=== PATIENT | female | born 1950 | race Caucasian/White ===

== ENCOUNTER 2023-09-04 18:57 | Inpatient (IN) | payer OTHER, BC ==
[2023-09-04 19:13] VITALS: BMI 19.5
[2023-09-04] MEDS: SODIUM CHLORIDE 0.9% 500 ML INFUS.BAG IV ONE (20:13)
[2023-09-04 20:31] LABS: BASO % 0.9 % (0-2.0); EOS % 0.2 % (0-4.5); HEMATOCRIT 24.5 % (32.4-45.2); HEMOGLOBIN 7.7 GM/dL (10.7-15.3); LYMPH % 7.7 % (8-40); MCH 23.6 pg (25.7-33.7); MCHC 31.4 g/dl (32.0-36.0); MEAN CELL VOLUME 75.2 fl (80-96); MEAN PLT VOLUME 7.9 fl (7.5-11.1); MONO % 7.2 % (3.8-10.2); PLATELET COUNT 389 10^3/uL (134-434); RBC 3.26 M/mm3 (3.60-5.2); RDW 18.6 % (11.6-15.6); WHITE BLOOD COUNT 7.8 K/mm3 (4.0-10.0)
[2023-09-04 20:40] LABS: INR 1.07 (0.83-1.09); PROTHROMBIN TIME (PATIENT) 12.1 SEC (9.7-13.0)
[2023-09-04 20:42] LABS: ACTIVATED PTT 28.9 SECONDS (25.2-36.5)
[2023-09-04 20:52] LABS: POTASSIUM 3.5 mmol/L (3.5-5.1)
[2023-09-04 20:54] LABS: ALBUMIN 3.7 g/dl (3.4-5.0); CALCIUM 9.6 mg/dL (8.5-10.1)
[2023-09-04 20:55] LABS: BLOOD UREA NITROGEN 10.5 mg/dL (7-18); MAGNESIUM 1.4 mg/dL (1.8-2.4)
[2023-09-04] MEDS ORDERED: MAGNESIUM 1GM/D5W - 1 GM/100 ML IVPB IVPB ONE (20:58)
[2023-09-04 20:59] LABS: BILIRUBIN,TOTAL 0.8 mg/dL (0.2-1); TOT PROT 8.5 g/dl (6.4-8.2)
[2023-09-04] MEDS: MAGNESIUM SULF 50% (8.12 MEQ/2 ML-1 GM VIAL) IVPB ONE (21:06)
[2023-09-05] MEDS: SODIUM CHLORIDE 1,000 ML IV SCH (05:48)
[2023-09-05] MEDS: VENLAFAXINE HCL 75 MG TABLET PO SCH (08:04)
[2023-09-05 08:35] LABS: HEMATOCRIT 20.8 % (32.4-45.2); MCHC 32.1 g/dl (32.0-36.0); MEAN CELL VOLUME 74.8 fl (80-96); MEAN PLT VOLUME 7.8 fl (7.5-11.1); PLATELET COUNT 319 10^3/uL (134-434); RBC 2.78 M/mm3 (3.60-5.2); RDW 18.2 % (11.6-15.6); WHITE BLOOD COUNT 6.9 K/mm3 (4.0-10.0)
[2023-09-05 08:55] LABS: POTASSIUM 3.3 mmol/L (3.5-5.1)
[2023-09-05 09:13] LABS: MAGNESIUM 1.7 mg/dL (1.8-2.4)
[2023-09-05 09:15] LABS: HEMOGLOBIN 6.7 GM/dL (10.7-15.3)
[2023-09-05 09:16] LABS: PHOSPHOROUS 3.3 mg/dL (2.5-4.9)
[2023-09-05 09:17] LABS: CREATININE 0.7 mg/dL (0.55-1.3)
[2023-09-05 09:18] LABS: BILIRUBIN,TOTAL 0.8 mg/dL (0.2-1); TOT PROT 7.1 g/dl (6.4-8.2)
[2023-09-05] MEDS: PANTOPRAZOLE SODIUM 40 MG VIAL IVPUSH SCH (09:21)
[2023-09-05] MEDS: NICOTINE 14 MG/24 HOURS TOPICAL PATCH TD SCH (09:21)
[2023-09-05] MEDS: MAGNESIUM SULF 50% (8.12 MEQ/2 ML-1 GM VIAL) IVPB ONE (17:49)
[2023-09-05] MEDS: POTASSIUM CHLORIDE ORAL LIQUID 20 MEQ/15 ML PO ONE (17:49)
[2023-09-05] MEDS: ATORVASTATIN CA 40 MG TABLET (FP) PO SCH (21:35)
[2023-09-06 07:47] LABS: PROTHROMBIN TIME (PATIENT) 11.5 SEC (9.7-13.0)
[2023-09-06 07:52] LABS: BASO % 1.1 % (0-2.0); EOS % 2.5 % (0-4.5); HEMATOCRIT 25.2 % (32.4-45.2); HEMOGLOBIN 8.1 GM/dL (10.7-15.3); LYMPH % 19.6 % (8-40); MCH 24.9 pg (25.7-33.7); MCHC 32.2 g/dl (32.0-36.0); MEAN CELL VOLUME 77.6 fl (80-96); MEAN PLT VOLUME 7.7 fl (7.5-11.1); MONO % 8.5 % (3.8-10.2); NEUT % 68.3 % (42.8-82.8); PLATELET COUNT 300 10^3/uL (134-434); RBC 3.24 M/mm3 (3.60-5.2); RDW 19.4 % (11.6-15.6); WHITE BLOOD COUNT 7.8 K/mm3 (4.0-10.0)
[2023-09-06 08:00] LABS: POTASSIUM 3.7 mmol/L (3.5-5.1)
[2023-09-06 08:07] LABS: ALBUMIN 2.9 g/dl (3.4-5.0); CALCIUM 8.7 mg/dL (8.5-10.1)
[2023-09-06 08:08] LABS: BLOOD UREA NITROGEN 4.7 mg/dL (7-18); CREATININE 0.7 mg/dL (0.55-1.3); MAGNESIUM 2.2 mg/dL (1.8-2.4)
[2023-09-06 08:10] LABS: BILIRUBIN,TOTAL 1.2 mg/dL (0.2-1); TOT PROT 6.6 g/dl (6.4-8.2)
[2023-09-06 08:50] LABS: BILIRUBIN,DIRECT 0.4 mg/dL (0.0-0.2)
[2023-09-06] MEDS: IRON SUCROSE INJECTION 200 MG in SODIUM CHLORIDE 100 ML IVPB ONE (11:38)
[2023-09-06] MEDS: BISACODYL 5 MG TABLET.DR (FP) PO ONE (18:02)
[2023-09-06] MEDS: PEG 3350/NA SULF BICARB CL/KCL 4000 ML SOLN.RECON PO ONE (18:02)
[2023-09-07 08:03] LABS: POTASSIUM 3.3 mmol/L (3.5-5.1)
[2023-09-07 08:07] LABS: CALCIUM 9.3 mg/dL (8.5-10.1)
[2023-09-07 08:08] LABS: ALBUMIN 3.4 g/dl (3.4-5.0); BLOOD UREA NITROGEN 3.7 mg/dL (7-18); MAGNESIUM 1.9 mg/dL (1.8-2.4)
[2023-09-07 08:11] LABS: CREATININE 0.8 mg/dL (0.55-1.3)
[2023-09-07 08:12] LABS: BILIRUBIN,TOTAL 1.4 mg/dL (0.2-1); PHOSPHOROUS 3.9 mg/dL (2.5-4.9); TOT PROT 7.6 g/dl (6.4-8.2)
[2023-09-07 08:31] LABS: HEMATOCRIT 29.4 % (32.4-45.2); HEMOGLOBIN 9.5 GM/dL (10.7-15.3); MCHC 32.4 g/dl (32.0-36.0); MEAN CELL VOLUME 77.3 fl (80-96); MEAN PLT VOLUME 7.9 fl (7.5-11.1); PLATELET COUNT 356 10^3/uL (134-434); RBC 3.81 M/mm3 (3.60-5.2); RDW 19.6 % (11.6-15.6); WHITE BLOOD COUNT 7.7 K/mm3 (4.0-10.0)
[2023-09-07 14:52] VITALS: RESP 18
[2023-09-07] MEDS: POTASSIUM CHLORIDE ORAL LIQUID 20 MEQ/15 ML PO ONE ×2 (16:14→17:42)
[2023-09-07] MEDS: SODIUM CHLORIDE 250 ML IV STA (17:43)
[2023-09-07] MEDS: SODIUM CHLORIDE 1,000 ML IV STA (20:45)
[2023-09-07 22:16] LABS: BASO % 0.7 % (0-2.0); EOS % 2.5 % (0-4.5); HEMATOCRIT 21.7 % (32.4-45.2); LYMPH % 15.8 % (8-40); MCHC 31.5 g/dl (32.0-36.0); MEAN CELL VOLUME 79.3 fl (80-96); MEAN PLT VOLUME 7.4 fl (7.5-11.1); MONO % 12.6 % (3.8-10.2); NEUT % 68.4 % (42.8-82.8); PLATELET COUNT 242 10^3/uL (134-434); RBC 2.74 M/mm3 (3.60-5.2); RDW 19.8 % (11.6-15.6); WHITE BLOOD COUNT 5.9 K/mm3 (4.0-10.0)
[2023-09-07 22:24] LABS: ADD RBC MORPHOLOGY YES; HEMOGLOBIN 6.8 GM/dL (10.7-15.3)
[2023-09-07 22:36] LABS: POTASSIUM 4.3 mmol/L (3.5-5.1)
[2023-09-07 22:38] LABS: CALCIUM 8.2 mg/dL (8.5-10.1)
[2023-09-07 22:39] LABS: BLOOD UREA NITROGEN 6.7 mg/dL (7-18)
[2023-09-07 22:42] LABS: CREATININE 0.8 mg/dL (0.55-1.3)
[2023-09-07 22:44] LABS: BILIRUBIN,TOTAL 0.6 mg/dL (0.2-1); TOT PROT 5.7 g/dl (6.4-8.2)
[2023-09-07 22:45] LABS: ALBUMIN 2.6 g/dl (3.4-5.0)
[2023-09-07 23:13] LABS: ANISOCYTOSIS 1+; OVALOCYTE 1+
[2023-09-07 23:20] LABS: PLATELET ESTIMATE ADEQUATE
[2023-09-08 02:37] LABS: HEMOGLOBIN 8.7 GM/dL (10.7-15.3); MCH 25.8 pg (25.7-33.7); MCHC 32.3 g/dl (32.0-36.0); MEAN CELL VOLUME 79.9 fl (80-96); MEAN PLT VOLUME 7.4 fl (7.5-11.1); PLATELET COUNT 258 10^3/uL (134-434); RBC 3.38 M/mm3 (3.60-5.2); RDW 20.6 % (11.6-15.6); WHITE BLOOD COUNT 7.1 K/mm3 (4.0-10.0)
[2023-09-08] MEDS: SODIUM CHLORIDE 1,000 ML IV SCH (02:41)
[2023-09-08 08:54] LABS: BASO % 0.9 % (0-2.0); EOS % 4.1 % (0-4.5); HEMATOCRIT 27.9 % (32.4-45.2); HEMOGLOBIN 9.2 GM/dL (10.7-15.3); LYMPH % 17.2 % (8-40); MCH 26.3 pg (25.7-33.7); MEAN CELL VOLUME 79.5 fl (80-96); MEAN PLT VOLUME 7.8 fl (7.5-11.1); MONO % 12.5 % (3.8-10.2); NEUT % 65.3 % (42.8-82.8); PLATELET COUNT 245 10^3/uL (134-434); RDW 20.4 % (11.6-15.6); WHITE BLOOD COUNT 6.6 K/mm3 (4.0-10.0)
[2023-09-08 08:57] LABS: POTASSIUM 3.8 mmol/L (3.5-5.1)
[2023-09-08 09:03] LABS: ALBUMIN 2.7 g/dl (3.4-5.0); CALCIUM 8.9 mg/dL (8.5-10.1); MAGNESIUM 1.5 mg/dL (1.8-2.4)
[2023-09-08 09:05] LABS: BLOOD UREA NITROGEN 5.9 mg/dL (7-18)
[2023-09-08 09:06] LABS: CREATININE 0.7 mg/dL (0.55-1.3); PHOSPHOROUS 3.2 mg/dL (2.5-4.9)
[2023-09-09] MEDS: MAGNESIUM 2GM/50ML STERILE WATER IVPB IVPB ONE (08:46)
[2023-09-09 09:07] LABS: HEMATOCRIT 30.6 % (32.4-45.2); HEMOGLOBIN 10.2 GM/dL (10.7-15.3); MCH 26.1 pg (25.7-33.7); MCHC 33.2 g/dl (32.0-36.0); MEAN CELL VOLUME 78.6 fl (80-96); MEAN PLT VOLUME 7.9 fl (7.5-11.1); PLATELET COUNT 279 10^3/uL (134-434); RDW 20.1 % (11.6-15.6)
[2023-09-09 09:49] LABS: POTASSIUM 3.8 mmol/L (3.5-5.1)
[2023-09-09 09:52] LABS: ALBUMIN 2.8 g/dl (3.4-5.0); CALCIUM 8.4 mg/dL (8.5-10.1); MAGNESIUM 1.4 mg/dL (1.8-2.4)
[2023-09-09 09:54] LABS: BLOOD UREA NITROGEN 4.8 mg/dL (7-18)
[2023-09-09 09:55] LABS: CREATININE 0.7 mg/dL (0.55-1.3); PHOSPHOROUS 3.2 mg/dL (2.5-4.9)
[2023-09-09 09:56] LABS: BILIRUBIN,TOTAL 1.4 mg/dL (0.2-1); TOT PROT 6.9 g/dl (6.4-8.2)
[2023-09-09 10:35] VITALS: BP 110/80; PULSE 80; TEMP 98.2
== END 2023-09-09 17:20 | disposition home or self-care (01) | DRG 378 ==
LOC: JER 18:57 → INTOOBSV 22:01 → UNDOADMOB 22:01 → JERBED 22:01 → UNDOADMOB 09-05 00:45 → JERBED 09-05 00:45 → J4S 09-05 02:26 → OBSVTOIN 09-05 16:36
PROVIDERS: ADMIT Internal Medicine; ATTEND Internal Medicine
PROC: 30233N1 Transfusion of Nonautologous Red Blood Cells into Peripheral Vein, Percutaneous Approach (ICD-10-PCS; principal; 2023-09-05)
PROC: 0DB68ZX Excision of Stomach, Via Natural or Artificial Opening Endoscopic, Diagnostic (ICD-10-PCS; 2023-09-07)
DX: K92.2 Gastrointestinal hemorrhage, unspecified (principal); E87.1 Hypo-osmolality and hyponatremia; Z68.1 Body mass index [BMI] 19.9 or less, adult; R63.4 Abnormal weight loss; D50.9 Iron deficiency anemia, unspecified; D64.9 Anemia, unspecified; R00.2 Palpitations; I95.9 Hypotension, unspecified; E87.6 Hypokalemia; K29.70 Gastritis, unspecified, without bleeding; E83.42 Hypomagnesemia; I10 Essential (primary) hypertension; K44.9 Diaphragmatic hernia without obstruction or gangrene; I25.10 Atherosclerotic heart disease of native coronary artery without angina pectoris; E78.5 Hyperlipidemia, unspecified; K21.9 Gastro-esophageal reflux disease without esophagitis; K59.00 Constipation, unspecified; F17.210 Nicotine dependence, cigarettes, uncomplicated; K57.90 Diverticulosis of intestine, part unspecified, without perforation or abscess without bleeding; Z87.11 Personal history of peptic ulcer disease; Z86.718 Personal history of other venous thrombosis and embolism
CPT/HCPCS: 0241U-QW; 36415; 36430; 71045-TC-FY; 74177-TC; 80053; 82248; 82272; 82550; 82607; 82728; 83540; 83550; 83735; 84100; 84443; 84484; 85025; 85027; 85610; 85730; 86850; 86900; 86901; 86922; 88305-TC; 93005; 93010; 93306-TC; 99285-25; G0378; J1756; P9058; Q9967

== ENCOUNTER 2024-04-11 13:15 | Inpatient (IN) | payer OTHER, BC ==
[2024-04-11] MEDS: SODIUM CHLORIDE 0.9% 500 ML INFUS.BAG IV ONE ×2 (14:01→18:49)
[2024-04-11 14:07] LABS: BASO % 0.7 % (0-2.0); EOS % 0.1 % (0-4.5); HEMATOCRIT 24.2 % (32.4-45.2); HEMOGLOBIN 7.6 GM/dL (10.7-15.3); LYMPH % 17.4 % (8-40); MCH 27.3 pg (25.7-33.7); MCHC 31.5 g/dl (32.0-36.0); MEAN CELL VOLUME 86.7 fl (80-96); MEAN PLT VOLUME 7.4 fl (7.5-11.1); MONO % 10.4 % (3.8-10.2); NEUT % 71.4 % (42.8-82.8); PLATELET COUNT 318 10^3/uL (134-434); RBC 2.79 M/mm3 (3.60-5.2); RDW 15.7 % (11.6-15.6); WHITE BLOOD COUNT 4.7 K/mm3 (4.0-10.0)
[2024-04-11 14:19] LABS: INR 1.05 (0.83-1.09); PROTHROMBIN TIME (PATIENT) 12.1 SEC (9.7-13.0)
[2024-04-11 14:21] LABS: ACTIVATED PTT 31.5 SECONDS (25.2-36.5)
[2024-04-11 14:27] LABS: CHLORIDE 92 mmol/L (98-107); POTASSIUM 4.3 mmol/L (3.5-5.1); SODIUM 125 mmol/L (136-145)
[2024-04-11 14:30] LABS: ALBUMIN 2.9 g/dl (3.4-5.0); ANION GAP 7 mmol/L (4-13); BLOOD UREA NITROGEN 12.7 mg/dL (7-18); CO2 27 mmol/L (21-32); GLUCOSE,RANDOM 97 mg/dL (74-106); MAGNESIUM 1.7 mg/dL (1.8-2.4)
[2024-04-11 14:33] LABS: CREATININE 0.9 mg/dL (0.55-1.3); SGOT/AST 33 U/L (15-37); SGPT/ALT 17 U/L (13-61)
[2024-04-11 14:34] LABS: BILIRUBIN,TOTAL 0.5 mg/dL (0.2-1); TOT PROT 7.2 g/dl (6.4-8.2)
[2024-04-11 14:36] LABS: ALK PHOS 101 U/L (45-117)
[2024-04-11 16:27] VITALS: BMI 20.5
[2024-04-11] MEDS ORDERED: GLUCAGON 1 MG KIT ONE ×2 (19:58→21:15)
[2024-04-11] MEDS ORDERED: ONDANSETRON 4 MG/2 ML VIAL ONE (19:58)
[2024-04-11] MEDS: ONDANSETRON 4 MG/2 ML VIAL IVPUSH ONE (20:03)
[2024-04-11] MEDS: GLUCAGON 1 MG KIT IVPUSH ONE ×2 (20:03→21:18)
[2024-04-11 20:30] LABS: EPI CELLS 29 /uL (0-25.1); HYALINE CASTS 0 /uL (0-3.1); PH,URINE 6.5 (5.0-8.0); URINE APPEARANCE CLEAR; URINE BACTERIA 1098 /uL (0-1359); URINE BILIRUBIN NEGATIVE (NEGATIVE); URINE COLOR YELLOW; URINE GLUCOSE (UA) NEGATIVE (NEGATIVE); URINE KETONE NEGATIVE (NEGATIVE); URINE LEUK ESTERASE 2+ (NEGATIVE); URINE NITRITE NEGATIVE (NEGATIVE); URINE PROTEIN TRACE (NEGATIVE); URINE WBC 66 /uL (0-25.8)
[2024-04-11 22:24] LABS: URINE RBC 20.5 /uL (0-23.9)
[2024-04-11] MEDS: OSELTAMIVIR PHOSPHATE 75 MG CAPSULE PO SCH (22:32)
[2024-04-12 01:38] LABS: HEMATOCRIT 29.6 % (32.4-45.2); HEMOGLOBIN 9.8 GM/dL (10.7-15.3); MCH 27.9 pg (25.7-33.7); MCHC 33.3 g/dl (32.0-36.0); MEAN PLT VOLUME 7.3 fl (7.5-11.1); PLATELET COUNT 309 10^3/uL (134-434); RBC 3.52 M/mm3 (3.60-5.2); RDW 15.7 % (11.6-15.6); WHITE BLOOD COUNT 8.1 K/mm3 (4.0-10.0)
[2024-04-12 01:57] LABS: POTASSIUM 4.1 mmol/L (3.5-5.1)
[2024-04-12 01:58] LABS: CALCIUM 8.2 mg/dL (8.5-10.1)
[2024-04-12 02:02] LABS: CREATININE 0.9 mg/dL (0.55-1.3)
[2024-04-12 02:09] LABS: IRON SERUM 320 ug/dL (50-175)
[2024-04-12 02:10] LABS: TOTAL IRON BINDING CAPACITY 358 ug/dL (250-450)
[2024-04-12 09:30] LABS: HEMATOCRIT 27.4 % (32.4-45.2); HEMOGLOBIN 9.1 GM/dL (10.7-15.3); MCH 27.9 pg (25.7-33.7); MCHC 33.1 g/dl (32.0-36.0); MEAN CELL VOLUME 84.4 fl (80-96); MEAN PLT VOLUME 7.6 fl (7.5-11.1); PLATELET COUNT 285 10^3/uL (134-434); RBC 3.25 M/mm3 (3.60-5.2); RDW 16.3 % (11.6-15.6); WHITE BLOOD COUNT 6.2 K/mm3 (4.0-10.0)
[2024-04-12 09:40] LABS: POTASSIUM 3.8 mmol/L (3.5-5.1)
[2024-04-12 09:44] LABS: IRON SERUM 18 ug/dL (50-175)
[2024-04-12] MEDS: PANTOPRAZOLE 40 MG TABLET PO SCH (09:44)
[2024-04-12 09:46] LABS: TOTAL IRON BINDING CAPACITY 373 ug/dL (250-450)
[2024-04-12 09:49] LABS: CALCIUM 8.5 mg/dL (8.5-10.1)
[2024-04-12 09:50] LABS: ALBUMIN 2.7 g/dl (3.4-5.0); BLOOD UREA NITROGEN 9.1 mg/dL (7-18); MAGNESIUM 1.5 mg/dL (1.8-2.4)
[2024-04-12 09:53] LABS: CREATININE 0.8 mg/dL (0.55-1.3); PHOSPHOROUS 2.2 mg/dL (2.5-4.9)
[2024-04-12 09:54] LABS: BILIRUBIN,TOTAL 1.8 mg/dL (0.2-1); TOT PROT 6.4 g/dl (6.4-8.2)
[2024-04-12] MEDS: SODIUM CHLORIDE 1,000 ML IV SCH (13:11)
[2024-04-12] MEDS: IRON SUCROSE INJECTION 200 MG in SODIUM CHLORIDE 100 ML IVPB ONE (14:00)
[2024-04-12] MEDS ORDERED: HEPARIN NA (PORCINE) 5,000 UNITS/ML 1ML VIAL SQ SCH (14:00)
[2024-04-12] MEDS: NAPH,MB-DB/K PH,MBDB POWDER PACKET PO SCH (14:25)
[2024-04-12] MEDS: MAGNESIUM SULF 50% (8.12 MEQ/2 ML-1 GM VIAL) IVPB ONE (14:45)
[2024-04-12] MEDS ORDERED: MAGNESIUM SULF 50% (8.12 MEQ/2 ML-1 GM VIAL) ONE (14:46)
[2024-04-12 15:22] LABS: BILIRUBIN,DIRECT 0.4 mg/dL (0.0-0.2)
[2024-04-13 09:13] LABS: BASO % 0.5 % (0-2.0); EOS % 0.3 % (0-4.5); HEMATOCRIT 28.3 % (32.4-45.2); HEMOGLOBIN 9.1 GM/dL (10.7-15.3); LYMPH % 14.3 % (8-40); MCH 27.5 pg (25.7-33.7); MCHC 32.2 g/dl (32.0-36.0); MEAN CELL VOLUME 85.4 fl (80-96); MEAN PLT VOLUME 7.1 fl (7.5-11.1); MONO % 8.9 % (3.8-10.2); PLATELET COUNT 289 10^3/uL (134-434); RBC 3.32 M/mm3 (3.60-5.2)
[2024-04-13 09:33] LABS: POTASSIUM 3.1 mmol/L (3.5-5.1)
[2024-04-13 09:35] LABS: BLOOD UREA NITROGEN 5.1 mg/dL (7-18); CALCIUM 8.2 mg/dL (8.5-10.1)
[2024-04-13 09:36] LABS: ALBUMIN 2.6 g/dl (3.4-5.0); MAGNESIUM 1.9 mg/dL (1.8-2.4)
[2024-04-13 09:38] LABS: CREATININE 0.7 mg/dL (0.55-1.3)
[2024-04-13 09:39] LABS: PHOSPHOROUS 2.4 mg/dL (2.5-4.9)
[2024-04-13 09:40] LABS: BILIRUBIN,TOTAL 0.7 mg/dL (0.2-1); TOT PROT 6.3 g/dl (6.4-8.2)
[2024-04-13] MEDS: ALBUTEROL SO4 2.5/IPRATROPIUM 0.5 INH SOL 3 ML VIAL.NEB. NEB SCH (12:20)
[2024-04-13] MEDS: POTASSIUM CHLORIDE ORAL LIQUID 20 MEQ/15 ML PO ONE (15:04)
[2024-04-13] MEDS: NAPH,MB-DB/K PH,MBDB POWDER PACKET PO SCH (15:05)
[2024-04-14 09:46] LABS: HEMATOCRIT 30.4 % (32.4-45.2); HEMOGLOBIN 10.2 GM/dL (10.7-15.3); MCHC 33.7 g/dl (32.0-36.0); MEAN CELL VOLUME 83.1 fl (80-96); PLATELET COUNT 341 10^3/uL (134-434); RBC 3.65 M/mm3 (3.60-5.2); RDW 16.3 % (11.6-15.6)
[2024-04-14 10:06] LABS: POTASSIUM 3.3 mmol/L (3.5-5.1)
[2024-04-14 10:07] LABS: CALCIUM 8.9 mg/dL (8.5-10.1)
[2024-04-14 10:08] LABS: ALBUMIN 2.8 g/dl (3.4-5.0); MAGNESIUM 1.8 mg/dL (1.8-2.4)
[2024-04-14 10:10] LABS: CREATININE 0.6 mg/dL (0.55-1.3)
[2024-04-14 10:11] LABS: PHOSPHOROUS 2.5 mg/dL (2.5-4.9)
[2024-04-14 10:12] LABS: BILIRUBIN,TOTAL 0.9 mg/dL (0.2-1); TOT PROT 6.9 g/dl (6.4-8.2)
[2024-04-14] MEDS: IRON SUCROSE INJECTION 200 MG in SODIUM CHLORIDE 100 ML IVPB ONE (10:27)
[2024-04-15 10:04] LABS: BASO % 0.5 % (0-2.0); EOS % 0.6 % (0-4.5); HEMATOCRIT 31.6 % (32.4-45.2); HEMOGLOBIN 10.4 GM/dL (10.7-15.3); LYMPH % 13.1 % (8-40); MCH 27.9 pg (25.7-33.7); MCHC 32.9 g/dl (32.0-36.0); MEAN CELL VOLUME 84.9 fl (80-96); MONO % 8.6 % (3.8-10.2); NEUT % 77.2 % (42.8-82.8); PLATELET COUNT 395 10^3/uL (134-434); RBC 3.72 M/mm3 (3.60-5.2); RDW 16.2 % (11.6-15.6); WHITE BLOOD COUNT 6.5 K/mm3 (4.0-10.0)
[2024-04-15 10:39] LABS: POTASSIUM 3.4 mmol/L (3.5-5.1)
[2024-04-15 10:40] LABS: BLOOD UREA NITROGEN 4.6 mg/dL (7-18); CALCIUM 9.2 mg/dL (8.5-10.1); MAGNESIUM 1.7 mg/dL (1.8-2.4)
[2024-04-15 10:44] LABS: CREATININE 0.7 mg/dL (0.55-1.3); PHOSPHOROUS 2.6 mg/dL (2.5-4.9)
[2024-04-15] MEDS: MIDODRINE HCL 5 MG TABLET PO SCH (16:02)
[2024-04-15] MEDS: MAGNESIUM 1GM/D5W - 1 GM/100 ML IVPB IVPB ONE (18:04)
[2024-04-15] MEDS: POTASSIUM CHLORIDE TABS 20 MEQ TABLET.ER (FP) PO SCH (21:46)
[2024-04-16] MEDS: POTASSIUM CHLORIDE ORAL LIQUID 20 MEQ/15 ML PO ONE (18:59)
[2024-04-17] MEDS: MIDODRINE HCL 5 MG TABLET PO SCH (09:20)
[2024-04-17] MEDS: VENLAFAXINE HCL 75 MG E.R. CAPSULES PO SCH (09:41)
[2024-04-17 10:12] VITALS: RESP 18
[2024-04-17 12:27] LABS: POTASSIUM 3.4 mmol/L (3.5-5.1)
[2024-04-17 12:29] LABS: CALCIUM 9.1 mg/dL (8.5-10.1)
[2024-04-17 12:30] LABS: BLOOD UREA NITROGEN 9.1 mg/dL (7-18); MAGNESIUM 1.7 mg/dL (1.8-2.4)
[2024-04-17 12:33] LABS: CREATININE 0.7 mg/dL (0.55-1.3)
[2024-04-17] MEDS: MAGNESIUM 2GM/50ML STERILE WATER IVPB IVPB ONE (14:43)
[2024-04-17] MEDS: POTASSIUM CHLORIDE ORAL LIQUID 20 MEQ/15 ML PO ONE (14:43)
[2024-04-17] MEDS: POTASSIUM CHLORIDE TABS 10 MEQ TABLET.ER (FP) PO ONE (16:00)
[2024-04-17] MEDS: POTASSIUM CHLORIDE TABS 20 MEQ TABLET.ER (FP) PO SCH (21:57)
[2024-04-18] MEDS: FAMOTIDINE 20 MG TABLET PO SCH (09:23)
[2024-04-18 09:47] LABS: POTASSIUM 3.4 mmol/L (3.5-5.1)
[2024-04-18 10:06] LABS: BLOOD UREA NITROGEN 11.6 mg/dL (7-18); MAGNESIUM 2.2 mg/dL (1.8-2.4)
[2024-04-18 10:09] LABS: CREATININE 0.7 mg/dL (0.55-1.3)
[2024-04-18 10:10] LABS: PHOSPHOROUS 3.1 mg/dL (2.5-4.9)
[2024-04-18] MEDS: KCL 10 MEQ IVPB 10 MEQ/100 ML INFUS.BAG IVPB SCH (18:57)
[2024-04-18] MEDS: POTASSIUM CHLORIDE TABS 20 MEQ TABLET.ER (FP) PO SCH (18:57)
[2024-04-19 07:49] VITALS: BP 103/64; PULSE 94; TEMP 97.5
== END 2024-04-19 11:30 | disposition home or self-care (01) | DRG 812 ==
LOC: JER 13:15 → JERBED 17:18 → J6W 22:05 → UNDODISIN 04-18 20:56
PROVIDERS: ADMIT Internal Medicine; ATTEND Internal Medicine
PROC: 30233N1 Transfusion of Nonautologous Red Blood Cells into Peripheral Vein, Percutaneous Approach (ICD-10-PCS; principal; 2024-04-11)
DX: D50.9 Iron deficiency anemia, unspecified (principal); E87.1 Hypo-osmolality and hyponatremia; E44.0 Moderate protein-calorie malnutrition; I10 Essential (primary) hypertension; E78.00 Pure hypercholesterolemia, unspecified; K44.9 Diaphragmatic hernia without obstruction or gangrene; J10.1 Influenza due to other identified influenza virus with other respiratory manifestations; R53.1 Weakness; I95.9 Hypotension, unspecified; E87.6 Hypokalemia; E83.42 Hypomagnesemia; K22.2 Esophageal obstruction; R29.6 Repeated falls; F41.8 Other specified anxiety disorders; K21.9 Gastro-esophageal reflux disease without esophagitis; K57.90 Diverticulosis of intestine, part unspecified, without perforation or abscess without bleeding; K59.00 Constipation, unspecified; K29.50 Unspecified chronic gastritis without bleeding; I25.10 Atherosclerotic heart disease of native coronary artery without angina pectoris; Z87.11 Personal history of peptic ulcer disease; Z68.20 Body mass index [BMI] 20.0-20.9, adult
CPT/HCPCS: 0241U-QW; 36415; 36430; 71045-TC-FY; 76705-TC; 80048; 80053; 81003; 82248; 82436; 82533; 82570; 82607; 82746; 82962; 83540; 83550; 83615; 83735; 83935; 84100; 84133; 84300; 84443; 84484; 85025; 85027; 85610; 85730; 86850; 86900; 86901; 86922; 87086; 87186; 93005; 93010; 94640; 97116-GP; 97162-GP; 99285-25; J1756; P9058